=== PATIENT | male | born 1970 | race Caucasian/White ===

== ENCOUNTER 2018-01-14 13:33 | Emergency (ER) | payer BC ==
[~2018-01-14] VITALS: Ht 182.9 cm; Wt 77.1 kg
--- NOTE | 2018-01-14 13:51 | NUR ---
DR THORNTON AT THE BEDSIDE FOR EVAL AND EXAM.
--- NOTE | 2018-01-14 14:15 | NUR ---
DR THORNTON MADE PATIENT AWARE OF TEST RESULTS.
--- NOTE | 2018-01-14 14:18 | NUR ---
Patient discharged to home in stable conditon. Written and verbal after care instructions given. Patient verbalizes understanding of instructions.
[2018-01-14 14:19] VITALS: BP 133/77
== END 2018-01-14 14:20 | disposition home or self-care (01) ==
LOC: ER 13:36
DX: J06.9 Acute upper respiratory infection, unspecified (principal)
CPT/HCPCS: 71045; 99283; A4663